=== PATIENT | male | born 1945 | race Caucasian/White ===

== ENCOUNTER 2019-03-07 15:44 | Inpatient (IN) | payer MEDICARE, OTHER ==
[~2019-03-07] VITALS: Ht 180.3 cm; Wt 115.3 kg
--- NOTE | ~2019-03-07 | ST ---
[place], [place] EXERCISE STRESS TEST REPORT NAME: ALFREDO FLORES [facility] #: [id number] UNIT #: [id number] ROOM: 404 DOCTOR: EMILEE DEL TORO,BEENA BIRTHDATE: [birth year] DOS: 03/09/2019 LEXISCAN STRESS TEST REASON FOR TEST: Elevated troponin. PHYSICAL EXAMINATION NECK: Supple. LUNGS: Clear anteriorly. HEART: Regular rhythm. PROTOCOL: Lexiscan protocol. Maximum heart rate 82, peak blood pressure 140/80. SYMPTOMS: The patient is chest pain free. EKG: Resting EKG showed sinus rhythm. Stress EKG showed no ischemia, no arrhythmias. CONCLUSION: Clinically, the patient is chest pain free. EKG nonischemic. POST-STRESS COMPLICATIONS: None. The patient received a total of 0.4 mg Lexiscan. BEENA HEBERT MD CM:STRESS:EXERCISE STRESS TEST REPORT [id number] BEENA HEBERT MD
--- NOTE | ~2019-03-07 | EKG ---
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
--- NOTE | ~2019-03-07 | EKG ---
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
--- NOTE | ~2019-03-07 | PR ---
[place], [place] PROGRESS NOTE [facility] [id number] UNIT #: [id number] ROOM: 404 DOCTOR: EMILEE DEL TORO,BEENA BIRTHDATE: [birth year] DOS: 03/09/2019 CARDIOLOGY FOLLOW UP NOTE REASON FOR VISIT: Elevated troponin and hypertension, cellulitis. SUBJECTIVE: Mr. Flores denies any chest pain, shortness of breath. No palpitation or dizziness. His right leg was dressed. He was seen by the ophthalmic surgical assistant. Denies any PND or orthopnea. No fever and chills. No nausea, vomiting, diarrhea. No cough or hemoptysis. His 2D echo showed mild aortic regurgitation. REVIEW OF SYSTEMS: Negative except as mentioned above. VITAL SIGNS: Blood pressure 140/80, pulse 83, respiration rate was 20. RHYTHM STRIPS: The patient is in sinus rhythm. PHYSICAL EXAMINATION: GENERAL: Alert, comfortable, in no acute distress. NECK: Supple, no distended neck veins. No carotid bruit. CHEST: Symmetrical, nontender. LUNGS: Clear to auscultation bilaterally. HEART: Regular rhythm, no S3, no palpable thrills. ABDOMEN: Benign, nontender. Bowel sounds normal. EXTREMITIES: Showed right leg was in dressing with edema, left leg has 1+ edema. The patient had a nonhealing ulcer of the left toe. Distal pulses are unable to palpate. NEUROLOGIC: He is alert with no focal neurologic deficit. RECTAL: Deferred. GENITOURINARY: Deferred. MEDICATIONS AND LABORATORY DATA: Reviewed. IMPRESSION: 1. 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 EKG has no significant ischemia. 2. Cellulitis and abscess of the right leg. 3. Non-morbid obesity. 4. Hypertension. 5. Mild aortic regurgitation by echo. RECOMMENDATIONS: 1. Continue current medications. 2. Lexiscan stress test today. 3. If the stress test is nonischemic, Cardiology will sign off. 4. The echo findings are discussed with Mr. Flores. 5. The patient can be discharged home per [facility] Disease [facility] if the stress test is unremarkable. 6. Risk factor modification for diet, exercise, weight loss discussed. [place], [place] PROGRESS NOTE NAME: ALFREDO FLORES UNIT #: [id number] ROOM: 404 DOCTOR: EMILEE DEL TORO,BEENA BIRTHDATE: [birth year] BEENA HEBERT MD CM:PNTRANS 09 [id number] BEENA HEBERT MD 03/10/19 1459 interface
[~2019-03-07 15:44] MED LIST: COLACE100 MG PO; DOXYCYCLINE100 M3 PO; ECOTRIN81 M1 PO; FEOSOL325 MG PO; FLOMAX0.4 MG PO; LOPRESSOR50 M1 PO; MEDROL DOSEPAK4 MG PO; MEDROL4 M1 PO; MELATONIN3 MG PO; NORCO 5-325 TA1 EACH PO; PRINIVIL5 M1 PO; SENNOSIDES-DOC1 EACH PO; TYLENOL325 M3 PO; VITAMIN D31000 UNI1 PO; XARELTO10 MG PO; ZOFRAN4 MG PO
[2019-03-07 15:47] VITALS: BP 172/73
[2019-03-07 16:21] LABS: BASO % 0.4 % (0.0-1.0); EOS # 0.2 10*3/uL (0.0-0.4); EOS % 1.9 % (1.0-4.0); HEMATOCRIT 37.8 % (42.0-52.0); HEMOGLOBIN 11.5 g/dl (14.0-18.0); LYMPH # 0.9 10*3/uL (1.3-4.4); LYMPH % 8.9 % (27.0-41.0); MEAN CELL VOLUME 79.2 fl (80.0-94.0); MEAN CORPUSCULAR HGB 24.1 pg (27.0-31.0); MEAN CORPUSCULAR HGB CONC 30.4 g/dl (33.0-37.0); MEAN PLATELET VOLUME 8.4 fl (9.6-12.3); MONO # 0.7 10*3/uL (0.1-1.0); MONO % 7.4 % (3.0-9.0); NEUT # 7.7 10*3/uL (2.3-7.9); NEUT % 80.1 % (47.0-73.0); PLATELET COUNT AUTOMATED 240 10*3/uL (130-400); RED BLOOD COUNT 4.77 10*6/uL (4.50-5.90); RED CELL DISTRI WIDTH 15.3 % (0-14.5); WHITE BLOOD COUNT 9.7 10*3/uL (4.8-10.8)
[2019-03-07 16:32] LABS: ACT PARTIAL THROMBO TIME 29.3 SECONDS (20.0-32.1)
[2019-03-07 16:40] LABS: ALBUMIN 2.9 gm/dl (3.1-4.5); ALKALINE PHOSPHATASE 169 U/L (45-117); BUN 12 mg/dl (7-24); CHLORIDE 106 mmol/L (98-107); CREATININE 0.91 mg/dL (0.70-1.30); LIPASE 69 U/L (73-393); POTASSIUM 4.1 mmol/L (3.5-5.1); SGOT/AST 10 IU/L (3-35); SGPT/ALT 12 U/L (12-78); SODIUM 137 mmol/L (136-145); TOTAL PROTEIN 7.1 gm/dL (6.4-8.2)
[2019-03-07 16:52] LABS: TROPONIN I < 0.015 ng/ml (<0.045)
--- NOTE | 2019-03-07 17:03 | NUR ---
PT HAS A UNIBOOT IN PLACE WITH A WOUND UNDERNEATH. WAS JUST DRESSED ABOUT [address] ALBARRAN DOES NOT WANT US TO UNDRESS THE SITE.
--- NOTE | 2019-03-07 17:20 | NUR ---
PT WISHES TO STAY IN HIS STREET CLOTHES UNTIL ARRIVAL TO ADMISSION BED.
--- NOTE | 2019-03-07 17:55 | NUR ---
PRANAY HOLDER'S ANSWERING SERVICE NOTIFIED OF CONSULT.
[2019-03-07 18:28] VITALS: BP 160/89
--- NOTE | 2019-03-07 18:49 | NUR ---
MASADMTime: N A 73 year old MALE admitted to under services of MARJORIE CEJA DO Pt. arrived via bed from ER. Chief complaint: PAIN, SWELLING RT FOOT. RACHANA MEDINA
[2019-03-07 20:00] VITALS: BP 170/80
--- NOTE | 2019-03-07 21:19 | NUR ---
PATIENT IS RESTING IN BED WITH EASY AND REGULAR RESPERS ON ROOM AIR. ASSESSMENT IS COMPLETE WITH NO S/S OF DISTRESS. PRN NORCO PROVIDED FOR C/O PAIN TO RIGHT FOOT. BED IS LOW, LOCKED, AND CALL LIGHT IS WITHIN REACH. WILL MONITOR EFFECT OF MEDICATION. SEE SHIFT ASSESSMENT.
[2019-03-07 23:05] LABS: BASO % 0.2 % (0.0-1.0); EOS # 0.1 10*3/uL (0.0-0.4); EOS % 1.5 % (1.0-4.0); HEMATOCRIT 38.4 % (42.0-52.0); HEMOGLOBIN 11.6 g/dl (14.0-18.0); LYMPH # 0.6 10*3/uL (1.3-4.4); LYMPH % 9.9 % (27.0-41.0); MEAN CELL VOLUME 79.3 fl (80.0-94.0); MEAN CORPUSCULAR HGB CONC 30.2 g/dl (33.0-37.0); MEAN PLATELET VOLUME 8.9 fl (9.6-12.3); MONO # 0.1 10*3/uL (0.1-1.0); MONO % 2.3 % (3.0-9.0); NEUT # 5.2 10*3/uL (2.3-7.9); NEUT % 83.4 % (47.0-73.0); PLATELET COUNT AUTOMATED 218 10*3/uL (130-400); RED BLOOD COUNT 4.84 10*6/uL (4.50-5.90); RED CELL DISTRI WIDTH 15.3 % (0-14.5); WHITE BLOOD COUNT 6.2 10*3/uL (4.8-10.8)
[2019-03-07 23:19] LABS: BUN 10 mg/dl (7-24); CHLORIDE 105 mmol/L (98-107); CREATININE 1.19 mg/dL (0.70-1.30); POTASSIUM 3.5 mmol/L (3.5-5.1); SODIUM 140 mmol/L (136-145); TROPONIN I 0.022 ng/ml (<0.045)
[2019-03-07 23:48] LABS: BILIRUBIN NEGATIVE (NEGATIVE); BLOOD NEGATIVE (NEGATIVE); CLARITY CLEAR (CLEAR); COLOR YELLOW (YELLOW); GLUCOSE NEGATIVE (NEGATIVE); KETONE NEGATIVE (NEGATIVE); LEUKO ESTERASE NEGATIVE (NEGATIVE); NITRITE NEGATIVE (NEGATIVE); SPECIFIC GRAVITY >= 1.030 (1.005-1.030); UROBILINOGEN 0.2 E.U./dl (0.2-1.0)
[2019-03-08] VITALS: BP 120/52
[2019-03-08 00:19] LABS: RBC 0-2 rbc/hpf (0-2); WBC 0-2 wbc/hpf (0-5)
--- NOTE | 2019-03-08 00:21 | NUR ---
ONE TIME DOSE OF MOTRIL GIVEN AT THIS TIME FOR A TEMP OF 102 RECTAL. WILL MONITOR EFFECT, CALL LIGHT IS WITHIN REACH.
--- NOTE | 2019-03-08 03:00 | NUR ---
PRN TYLENOL GIVEN FOR A TEMP OF 99.0 ORALLY. CALL LIGHT IS WITHIN REACH, WILL MONITOR EFFECT.
[2019-03-08 04:00] VITALS: BP 147/70
--- NOTE | 2019-03-08 04:45 | NUR ---
24 HR. CHART CHECK COMPLETE.
[2019-03-08 05:33] LABS: BUN 9 mg/dl (7-24); CHLORIDE 107 mmol/L (98-107); CHOLESTEROL 157 mg/dL (<200); CREATININE 0.91 mg/dL (0.70-1.30); HDL CHOLESTEROL 32 mg/dl (40-60); LDL CHOLESTEROL 110 mg/dL (9-159); POTASSIUM 4.2 mmol/L (3.5-5.1); SODIUM 138 mmol/L (136-145); TRIGLYCERIDES 73 mg/dl (<150); VLDL CHOLESTEROL 15 mg/dL (6-40)
[2019-03-08 05:39] LABS: THYROID STIM HORMONE (HS) 0.942 uIU/ml (0.358-4.75)
[2019-03-08 05:58] LABS: HEMATOCRIT 36.5 % (42.0-52.0); HEMOGLOBIN 11.1 g/dl (14.0-18.0); MEAN CELL VOLUME 78.7 fl (80.0-94.0); MEAN CORPUSCULAR HGB 23.9 pg (27.0-31.0); MEAN CORPUSCULAR HGB CONC 30.4 g/dl (33.0-37.0); PLATELET COUNT AUTOMATED 231 10*3/uL (130-400); RED BLOOD COUNT 4.64 10*6/uL (4.50-5.90); RED CELL DISTRI WIDTH 15.4 % (0-14.5); WHITE BLOOD COUNT 10.2 10*3/uL (4.8-10.8)
--- NOTE | 2019-03-08 06:34 | NUR ---
ALFREDO FLORES [id number] Please refer to the physician's history and physical for past medical history, comorbid conditions, and allergies. Diagnosis: CELLULITIS AND ABSCESS OF FOOT Caleb Score: 20,LOW OR NO RISK WOUND DESCRIPTIONS: Wound Number: 1 Location of the wound: Left great toe Type of wound: unstageable Thickness: Full Size: 1.7cm x 0.6cm x 0.1cm Tunneling: none Undermining: none Sinus Tract: none Presence of Exudate: Serosanguineous Amount: Light Color: Red Odor: None Periwound Skin Appearance: Normal Wound edges: approximated Pain (associated with wound): none at time of assessment How does patient state this happened? pt stated this started about 2 weeks ago Wound Number: 2 Location of the wound: right lateral aspect of ankle Thickness: Full Size: 2.0cm x 1.2cm x 0.1cm Tunneling: none Undermining: none Sinus Tract: none Presence of Exudate: Serosanguineous Amount: Moderate Color: Red, yellow Odor: None Periwound Skin Appearance: Staining, edema Wound edges: approximated Pain (associated with wound): none at time of assessment How does patient state this happened? pt stated this has been going on for awhile and he stated he follows with Dr. Galvan and was just seen in the office yesterday and had his leg wrapped. He stated when he is discharged from the facility he will continue to follow with Dr. Galvan. Wound Number: 3 Location of the wound: right medial ankle Thickness: Partial Size: 0.6cm x 0.4cm x 0.1cm Tunneling: none Undermining: none Sinus Tract: none Presence of Exudate: Sanguineous Amount: Light Color: Red Odor: None Periwound Skin Appearance: Staining Wound edges: approximated Pain (associated with wound): none at time of assessment How does patient state this happened? pt stated this has been going on for awhile and he stated he follows with Dr. Galvan and was just seen in the office yesterday and had his leg wrapped. He stated when he is discharged from the facility he will continue to follow with Dr. Galvan. Patient has several intact scars noted to right lower extremity he stated these areas are from an external fixation device which he has had four different times. Patient has staining, dry and flaky areas noted to right lower extremity. Patient states areas looks so much better than before. Surface the patient is resting on: Position Pro SKIN PREVENTION RECOMMENDATION: 1. Pressure redistribution support surface as appropriate 2. Elevate heels 3. Remove boots/TEDS every shift and reapply 4. Head of bed 30 degrees as tolerated 5. Assess nutrition and hydration 6. Manage moisture 7. Avoid the use of containment devices while in bed 8. Use absorptive products on surfaces limit layers of linens on bed 9. Turn and reposition every 1-2 hours in bed and every 1 hour in chair as tolerated 10. Weight shifts every 15 minutes while up in chair 11. Offloading with pillows or device to keep heels elevated off bed 12. Monitor skin at least every shift 13. Inspect under medical devices twice a day WOUND TREATMENT RECOMMENDATIONS: Venous and arterial studies to BLE's due to non-heaing wounds patient stated his last studies were about 2 years ago. Imaging stuides bilateral feet due to non-healing wounds. Podiatry and ID already on consult await wound care orders from podiatry.
--- NOTE | 2019-03-08 07:12 | NUR ---
Samson Levy made aware that dressing was taken off last evening and he will see that patient later today.
--- NOTE | 2019-03-08 07:15 | NUR ---
RAPID RESPONSE CALLED AT 2218 D/T PATIENTS SEVERE TREMORS AND CYANOTIC LIPS. 2L O2 VIA NC APPLIED AND PRISCA GUSMAN BENDER, AND MAYITO IN TO ASSESS PATIENT. SPO2 94% TEMP 102.1. RECTAL TYLENOL GIVEN, IV FLUIDS BOLUSED, 25MG IV BENADRYL GIVEN, WELL UNABOOTS ORDERED TO BE CUT OFF D/T CAP REFILL TO TOES BEING SLUGGISH AND SKIN TO FOOT COLD AND THIGH BEING WARM. TREMORS SUBSIDED AROUND 2234 AND PATIENT STATES HE IS FEELING MUCH BETTER. CALL LIGHT IS WITHIN REACH, WILL CONTINUE TO MONITOR.
--- NOTE | 2019-03-08 07:21 | NUR ---
Dr. Yee notified of wound care recommendations.
[2019-03-08 07:35] LABS: BASOPHILS 1 % (0-1); TOTAL CELLS COUNTED 100 #CELLS
[2019-03-08 07:37] LABS: MICROCYTOSIS SLIGHT; PLATELET SUFFICIENCY NORMAL (NORMAL)
[2019-03-08 07:50] LABS: VITAMIN D, 25-HYDROXY 30.1 ng/mL (30-100)
[2019-03-08 08:00] VITALS: BP 176/74
--- NOTE | 2019-03-08 08:25 | NUR ---
'S OFFICE NOTIFIED OF CONSULT.
--- NOTE | 2019-03-08 08:30 | NUR ---
PATIENT RESTING QUIETLY IN BED. NO DISTRESS NOTED. PT ALERT/ORIENTED X3. SKIN PALE, WARM & DRY. PT DENIES ANY SOB ON RA. LUNGS CLEAR/DIMINISHED T/O. PT DENIES ANY PAIN/DISCOMFORT AT THIS TIME. VSS. UNNA BOOT TAKEN OFF OF RIGHT LOWER LEG T/O THE NIGHT. AWAITING FOR PODIATRY. WILL CONTINUE TO MONITOR.
--- NOTE | 2019-03-08 08:45 | NUR ---
ECHO BEING PERFORMED AT THE BEDSIDE.
--- NOTE | 2019-03-08 09:00 | NUR ---
case management attempted to visit with patient, he is with nursing staff at this time, will see at a later time
--- NOTE | 2019-03-08 10:44 | NUR ---
IN TO SEE PATIENT. THIS NURSE IN DURING ROUNDING.
--- NOTE | 2019-03-08 10:48 | NUR ---
PATIENT TAKEN DOWN FOR STAT U/S.
[2019-03-08 12:02] VITALS: BP 150/62
[2019-03-08 16:00] VITALS: BP 147/71
--- NOTE | 2019-03-08 16:10 | NUR ---
PT MEDICATED WITH PO NORCO PER PRN ORDER FOR C/O RIGHT FOOT PAIN. RATES PAIN 02/24. WILL MONITOR EFFECTIVENESS.
--- NOTE | 2019-03-08 17:13 | NUR ---
PAIN BEING RELIEVED PER PT. WILL CONTINUE TO MONITOR.
[2019-03-08 20:00] VITALS: BP 170/80; BP 190/90
[2019-03-09] VITALS: BP 150/80; BP 168/89
--- NOTE | 2019-03-09 01:30 | NUR ---
RT arm IV discontinued. Site swollen and tender to touch. Pressure applied. Sterile dressing applied. SHAUN MILLER
--- NOTE | 2019-03-09 01:40 | NUR ---
IV started right antecubital with #22 protective cath after 1 attempt. Site prepped with Chloroprep. Sterile dressing applied. Patient tolerated procedure well. SHAUN MILLER
[2019-03-09 06:38] LABS: HEMATOCRIT 36.9 % (42.0-52.0); HEMOGLOBIN 11.2 g/dl (14.0-18.0); MEAN CELL VOLUME 78.8 fl (80.0-94.0); MEAN CORPUSCULAR HGB 23.9 pg (27.0-31.0); MEAN CORPUSCULAR HGB CONC 30.4 g/dl (33.0-37.0); MEAN PLATELET VOLUME 9.3 fl (9.6-12.3); PLATELET COUNT AUTOMATED 248 10*3/uL (130-400); RED BLOOD COUNT 4.68 10*6/uL (4.50-5.90); RED CELL DISTRI WIDTH 14.8 % (0-14.5); WHITE BLOOD COUNT 16.8 10*3/uL (4.8-10.8)
[2019-03-09 07:03] LABS: BUN 15 mg/dl (7-24); CHLORIDE 106 mmol/L (98-107); CREATININE 0.86 mg/dL (0.70-1.30); POTASSIUM 4.3 mmol/L (3.5-5.1); SODIUM 139 mmol/L (136-145)
[2019-03-09 07:28] LABS: PLATELET SUFFICIENCY NORMAL (NORMAL); TOTAL CELLS COUNTED 100 #CELLS
[2019-03-09 08:00] VITALS: BP 170/88
--- NOTE | 2019-03-09 09:00 | NUR ---
case management attempted to visit with patient, he is out of room for testing, will see at a later time
--- NOTE | 2019-03-09 10:03 | NUR ---
INFORMED SIGNED CONSENT OBTAINED FOR LEXISCAN STRESS TEST WITH DR HEBERT. RESTING EKG NSR HR 63 BP 140/80. PULSE OX 100% LUNGS CLEAR. PT COMPLETED ONE MINUTE OF A LEXISCAN PROTOCOL COMPLETED WITH PT RECEIVING LEXISCAN 0.4MG IV OVER 10 SECONDS. PT HAD AN ODD SENSATION WITH INJECTION. NO ARRHYTHMIAS OR ST CHANGES NOTED. LAST RECOVERY HR OF 80 BP 140/80. PT IN STABLE CONDITION, AWAITING NUCLEAR IMAGES.
--- NOTE | 2019-03-09 11:28 | NUR ---
PHYSICAL THERAPY Physical therapy evaluation attempted. Patient off floor at this time for stress test. Will attempt PT evaluation again at a later time/date. Thank you. Maryellen Meneses,PT,DPT.
--- NOTE | 2019-03-09 12:33 | NUR ---
case management attempts to visit with patient, he is still out of room, case management will follow
--- NOTE | 2019-03-09 13:43 | NUR ---
PHYSICAL THERAPY Physical therapy evaluation attempted. Dr. Davies in room with patient with Right LE/foot unwrapped at this time. Patient reports that he is fatigued following testing earlier in the day, but states that he does well in the room with his crutches. Physician and patient request PT return at a later time/date to complete PT evaluation. Will attempt at a later time/date. Thank you. Maryellen Meneses,PT,DPT.
--- NOTE | 2019-03-09 13:49 | NUR ---
Occupational therapy orders receieved and chart reviewed. Upon arrival, podiatry was in room and Roel JANG was undressed. Per patient, he was "feeling groggy" and "has not eaten lunch yet." and would prefer to be evaluated at a later date. Will follow up when appropriate. Thank you for the referral. Louisa Kevin, OTR/L
--- NOTE | 2019-03-09 15:11 | NUR ---
Watch And Clock Repair Clerk in to talk to patient. Patient states lives at home with alone. There are few steps in the home. Physician: ruben thomas Pharmacy: [facility] Home health services: none at present Patient's level of ADLs: MINIMAL ASSIST Patient has working utilities: all working DME: crutches, case boot/brace Follow-up physician's appointment after d/c: will be made by hospitalist nurse director upon discharge Does patient want to access PORTAL?: no Discharge plan discussed with patient, he states he lives he ambulates with cruthces at this time, he is independent in adls, discussed with him a discharge plan including a short term half-way for rehab prior to going home, patient stated he is very familiar with LTAC, half-way and home health services, he has been a patient at [facility] and also [facility]. he uses [facility] in the past. patient states he is unsure of the treatm plan and until he knows that he is unable to determine what he will need, case management will follow for needs. FREEMAN LANG
[2019-03-09 16:00] VITALS: BP 157/77
--- NOTE | 2019-03-09 17:17 | NUR ---
NORCO 5/325 GIVEN PER PATIENT REQUEST FOR RIGHT LEG PAIN RATING A 7.
--- NOTE | 2019-03-09 19:30 | NUR ---
24 HOUR CHART CHECK COMPLETE.
[2019-03-09 20:00] VITALS: BP 160/82; BP 185/85
--- NOTE | 2019-03-09 23:29 | NUR ---
PRN NORCO ADMINISTERED FOR PT C/O SCIATIC PAIN RATED A 6/10. NO OTHER COMPLAINTS AT THIS TIME. WILL CONTINUE TO MONITOR AND REASSESS.
[2019-03-10] VITALS: BP 135/74; BP 159/76
--- NOTE | 2019-03-10 00:15 | NUR ---
PT STATES RELIEF FROM NORCO. WILL CONTINUE TO MONITOR.
[2019-03-10 06:50] LABS: BASO % 0.3 % (0.0-1.0); EOS % 0.1 % (1.0-4.0); HEMATOCRIT 36.1 % (42.0-52.0); HEMOGLOBIN 10.9 g/dl (14.0-18.0); LYMPH # 0.8 10*3/uL (1.3-4.4); LYMPH % 7.8 % (27.0-41.0); MEAN CELL VOLUME 78.8 fl (80.0-94.0); MEAN CORPUSCULAR HGB 23.8 pg (27.0-31.0); MEAN CORPUSCULAR HGB CONC 30.2 g/dl (33.0-37.0); MEAN PLATELET VOLUME 9.2 fl (9.6-12.3); MONO # 0.5 10*3/uL (0.1-1.0); MONO % 4.9 % (3.0-9.0); NEUT # 8.3 10*3/uL (2.3-7.9); NEUT % 84.8 % (47.0-73.0); PLATELET COUNT AUTOMATED 228 10*3/uL (130-400); RED BLOOD COUNT 4.58 10*6/uL (4.50-5.90); RED CELL DISTRI WIDTH 15.1 % (0-14.5); WHITE BLOOD COUNT 9.7 10*3/uL (4.8-10.8)
[2019-03-10 07:06] LABS: BUN 16 mg/dl (7-24); CHLORIDE 107 mmol/L (98-107); CREATININE 0.88 mg/dL (0.70-1.30); PHOSPHOROUS 3.5 mg/dL (2.5-4.9); POTASSIUM 3.7 mmol/L (3.5-5.1); SODIUM 141 mmol/L (136-145)
[2019-03-10 08:00] VITALS: BP 180/80
[2019-03-10 16:00] VITALS: BP 155/71
--- NOTE | 2019-03-10 16:20 | NUR ---
pt medicated with prn norco for c/o of back and rle pain. pt rates pain 01/24.
--- NOTE | 2019-03-10 19:00 | NUR ---
PHYSICAL THERAPY PT EVAL COMPLETED TODAY ON LEVEL 4: FULL EVALUAITON TO FOLLOW. RECOMMEND PT WHILE HERE TO ADDRESS DECREASED STRENGTH, ENDURANCE, BALANCE AND THUS DECREASED FUNCTIONAL MOBILITY. PT EVAL IS MODERATE COMPLEXITY BASED ON CHART REVIEW, TEST RESULTS AND EVALAUTION:[id number]. D/C RECOMMENDATIONS ARE FOR SNF AT THIS TIME DUE TO LIVING ALONE AND HAVING DIFFICULTY MAINTAINING NWB STATUS ON THE RLE. IF HE DOES NOT MEET CRITERIA FOR SNF WOULD ADVISE HOME PT SERVICES. THANK YOU FOR REFERRAL KAVITHA MCCANN PT
--- NOTE | 2019-03-10 19:30 | NUR ---
24 HOUR CHART CHECK COMPLETE.
[2019-03-10 20:00] VITALS: BP 127/59
--- NOTE | 2019-03-10 21:11 | NUR ---
PRN NORCO ADMINISTERED FOR SCIATIC PAIN RATED A 6/10 ON THE PAIN SCALE. WILL CONTINUE TO MONITOR AND REASSESS. NO OTHER COMPLAINTS AT THIS TIME. CALL LIGHT IN REACH.
--- NOTE | 2019-03-10 22:00 | NUR ---
PT STATES THAT HIS PAIN IS GONE, AND FEELS A LOT MORE COMFORTBALE AFTER RECEIVING THE NORCO. WILL CONTINUE TO MONITOR.
[2019-03-11] VITALS: BP 135/74
--- NOTE | 2019-03-11 07:27 | NUR ---
May convert patient to PO Zyvox if clinically feasible -- all criteria met for IV to PO conversion. Thanks, Mamadou Rivera, PharmD, h
[2019-03-11 08:00] VITALS: BP 158/82
[2019-03-11 12:00] VITALS: BP 150/68
--- NOTE | 2019-03-11 13:00 | NUR ---
PATIENT COMPLAINING OF BACK PAIN 01/24 AT THIS TIME AND REQUESTING NORCO. MEDICATED PER ORDER. WILL MONITOR FOR EFFECTIVENESS.
[2019-03-11 16:00] VITALS: BP 172/83
--- NOTE | 2019-03-11 19:30 | NUR ---
24 HOUR CHART CHECK COMPLETE.
[2019-03-11 20:00] VITALS: BP 179/77
--- NOTE | 2019-03-11 20:56 | NUR ---
PRN NORCO ADMINISTERED FOR PT COMPLAINT OF 8/10 SCIATIC PAIN. WILL CONTINUE TO MONITOR AND REASSESS. NO OTHER COMPLAINTS AT THIS TIME. CALL LIGHT IN REACH.
--- NOTE | 2019-03-11 21:30 | NUR ---
PT ASLEEP. NO SIGNS OF DISCOMFORT OR DISTRESS NOTED.
[2019-03-12] VITALS: BP 152/81
[2019-03-12 08:00] VITALS: BP 156/58
--- NOTE | 2019-03-12 09:00 | NUR ---
PT REQUESTED AND RECEIVED PO NORCO PER PRN ORDER FOR C/O RIGHT FOOT PAIN. WOUND VAC INTACT. WILL MONITOR EFFECTIVENESS.
--- NOTE | 2019-03-12 09:00 | NUR ---
case management visits with patient, again discussed a discharge plan with patient. patient stated he was waiting to talk with salvage engineering technician regarding amputation of his leg or home iv antibiotics, he he had home iv antibiotics he would prefer [facility], case management will follow for any home needs
--- NOTE | 2019-03-12 09:45 | NUR ---
PHYSICAL THERAPY Patient seen this am 1;1 for therapy visit and was resting supine in bed upon therapist arrival. Patient was pleasant voicing no c/o's pain and presented with R LE wound vac. Patient stated several times he was considering R LE amputation and had just come back from the bathroom. Patient did not feel up to standing or walking again, however agreed to and transfered supine to sit EOB CGA, while performing seated B LE therex, all planes, 2 x 10 reps each to increase LE strength. Patient completed all treatment without c/o and remained seated EOB with call light, tray table and cell phone. Patient would benefit from SNF to improve standing dynamic balance, activity tolerance and mobility to reduce risk of falling. Will continue per POC as tolerated, total treatment time 14 minutes. Kiran Javier, SOLDERER
--- NOTE | 2019-03-12 10:11 | NUR ---
LUISACO EFFECTIVE PER PT. WILL CONTINUE TO MONITOR. CALL LIGHT WITHIN REACH.
[2019-03-12 12:00] VITALS: BP 152/66
--- NOTE | 2019-03-12 13:40 | NUR ---
PT REQUESTED AND RECEIVED PO NORCO PER PRN ORDER FOR C/O RIGHT FOOT PAIN. CHRONIC PAIN PER PT. WOUND VAC INTACT WITH TIGHT SEAL. WILL MONITOR EFFECTIVENESS. RATES PAIN 02/24. CALL LIGHT WITHIN REACH.
--- NOTE | 2019-03-12 14:20 | NUR ---
Discussed with patient his concerns over his mother's bank statements that need to be delivered to [place] where his mother is living. Since he is POA he is going to call the bank to see if they are able to print his mother's bank statements and he can have a friend picking table worker the bank statements and hand deliver them to [place] tomorrow in time for the [facility] meeting in the morning. Flight Tower Dispatcher and Dr. Bautista notified.
[2019-03-12] MEDS ORDERED: SIMVASTATIN20 MG PO (15:36)
[2019-03-12] MEDS ORDERED: ASPIRIN ADULT L81 M2 PO (15:36)
[2019-03-12] MEDS ORDERED: LISINOPRIL10 M1 PO (15:36)
[2019-03-12 16:00] VITALS: BP 139/70
--- NOTE | 2019-03-12 17:00 | NUR ---
WOUND PICS/MEASUREMENTS TAKEN FOR DISCHRGE TO [facility]. SEE WOUND ASSESSMENT SCREEN.
--- NOTE | 2019-03-12 19:40 | NUR ---
NURSE TO NURSE REPORT GIVEN TO YVES PITT AT [facility].
[2019-03-12 20:00] VITALS: BP 154/79
--- NOTE | 2019-03-12 20:32 | NUR ---
[facility] HAS BEEN DELAYED DUE TO EMERGENCY. PATIENT UPDATED.
--- NOTE | 2019-03-12 21:00 | NUR ---
PO NORCO ADMINISTERED PER PRN ORDER FOR C/O PAIN IN R LEG RATED 7/10. WILL MONITOR EFFECTIVENESS. CALL LIGHT IN REACH.
--- NOTE | 2019-03-12 21:02 | NUR ---
BAUDILIO FROM [facility] NOTIFIED OF DELAY IN TRANSFER. PHONE NUMBER [phone]
--- NOTE | 2019-03-12 21:44 | NUR ---
PATIENT TAKEN OFF FLOOR IN CARE OF [facility]. TRANSFER PACKET COMPLETED & SENT WITH PATIENT. ALL PATIENT BELONGINGS COLLECTED AND SENT WITH PATIENT WELL. WILL MONITOR.
--- NOTE | 2019-03-12 21:45 | NUR ---
PATIENT TAKEN OFF FLOOR IN CARE OF [facility]. TRANSFER PACKET COMPLETED & SENT WITH PATIENT. ALL PATIENT BELONGINGS COLLECTED AND SENT WITH PATIENT WELL.
--- NOTE | 2019-03-12 21:47 | NUR ---
YOANDY FROM [facility] UPDATED ON PT'S DEPARTURE.
--- NOTE | 2019-03-13 00:25 | NUR ---
RN FROM [facility] CALLED TO QUESTION ABOUT PATIENT'S LAST DOSE OF ANTIBIOTICS AND THE DATE OF REACTION TO VANCOMYCIN.
--- NOTE | 2019-03-13 07:50 | NUR ---
PHYSICAL THERAPY CO-SIGN I approve of the Physical Therapy notes written above. LOBO HUNTER PT, DPT
--- NOTE | 2019-03-13 08:52 | NUR ---
Occupational therapy order receieved. Patient has since been discharged. Thank you for the referral. Louisa Kevin OTR/L
== END 2019-03-12 21:47 | disposition short-term general hospital (02) | DRG 560 ==
LOC: ED 15:44 → EDHOLD 17:00 → 4E 17:00
PROVIDERS: Emergency Medicine; Internal Medicine; Student in an Organized Health Care Education/Training Program; ADMIT Internal Medicine
PROC: 4A02XM4 Measurement of Cardiac Total Activity, External Approach (ICD-10-PCS; principal; 2019-03-09)
PROC: 3E073KZ Introduction of Other Diagnostic Substance into Coronary Artery, Percutaneous Approach (ICD-10-PCS; principal; 2019-03-09)
DX: T84.116A Breakdown (mechanical) of internal fixation device of bone of right lower leg, initial encounter (principal); L02.611 Cutaneous abscess of right foot; L03.115 Cellulitis of right lower limb; E44.0 Moderate protein-calorie malnutrition; I24.8 Other forms of acute ischemic heart disease; I50.32 Chronic diastolic (congestive) heart failure; L97.319 Non-pressure chronic ulcer of right ankle with unspecified severity; M86.671 Other chronic osteomyelitis, right ankle and foot; D50.9 Iron deficiency anemia, unspecified; R79.89 Other specified abnormal findings of blood chemistry; I35.1 Nonrheumatic aortic (valve) insufficiency; R70.0 Elevated erythrocyte sedimentation rate; E83.41 Hypermagnesemia; N40.0 Benign prostatic hyperplasia without lower urinary tract symptoms; G62.9 Polyneuropathy, unspecified; E66.9 Obesity, unspecified; Y83.1 Surgical operation with implant of artificial internal device as the cause of abnormal reaction of the patient, or of later complication, without mention of misadventure at the time of the procedure; I11.0 Hypertensive heart disease with heart failure; Z80.42 Family history of malignant neoplasm of prostate; Z82.49 Family history of ischemic heart disease and other diseases of the circulatory system; Z88.1 Allergy status to other antibiotic agents; Z79.899 Other long term (current) drug therapy; Z79.82 Long term (current) use of aspirin; Z79.01 Long term (current) use of anticoagulants; Z71.3 Dietary counseling and surveillance; Z68.35 Body mass index [BMI] 35.0-35.9, adult; Z98.1 Arthrodesis status; Y92.89 Other specified places as the place of occurrence of the external cause

== ENCOUNTER → 2019-06-13 | Day surgery (SDC) | payer MEDICARE, OTHER ==
[~2019-06-13] VITALS: Ht 182.8 cm; Wt 108.9 kg
[~2019-06-13] MED LIST changes: +ASPIRIN ADULT L81 M2 PO; +CEFDINIR300 MG PO; +LEVOFLOXACIN750 M2 PO; +LISINOPRIL10 M1 PO; +SIMVASTATIN20 MG PO; +TRAMADOL HCL50 MG PO
--- NOTE | ~2019-06-13 | WRIGHTHP ---
[place], [place] PATIENT HISTORY AND PHYSICAL EXAM NAME: ALFREDO FLORES [facility] #: [id number] UNIT #: [id number] ROOM: DOCTOR: ANNIKA KENNY DPM BIRTHDATE: [birth year] DOS: 06/13/2019 LOWER EXTREMITY PHYSICAL EXAM: VASCULAR: He has good pedal pulses, good perfusion to his right lower extremity. Good cap refill time noted. NEUROLOGICAL: He has a loss of protective sensation secondary to peripheral neuropathy. DERMATOLOGICAL: He has no open wounds, no open lesions noted on his right lower extremity. MUSCULOSKELETAL: He has delayed union of tibial calcaneal joint. 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 ANNIKA KENNY DPM CM:HISPHYS:PATIENT HISTORY AND PHYSICAL EXAMINATION 1120 1409 ANNIKA KENNY DPM 06/13/19 1410 interface
--- NOTE | ~2019-06-13 | WRIGHTHP ---
[place], [place] PATIENT HISTORY AND PHYSICAL EXAM NAME: ALFREDO FLORES [facility] #: [id number] UNIT #: [id number] ROOM: DOCTOR: ANNIKA KENNY DPM BIRTHDATE: [birth year] DOS: 06/13/2019 INDICATION NOTE The patient is seen for complex reconstruction of his right lower extremity for limb salvage. With this in mind, he has fractured hardware in his right lower limb. At this time, he is set for surgery for removal of hardware x 2, insertion of new hardware and stabilization and attempts of re-stabilization of the ankle joint and also for bone debridement. With this in mind, he is aware of pros, cons, risks, benefits overcorrection, undercorrection, recurrence, numbness, infection, nonunion, delayed union, malunion, DVT, PE, limb loss, etc. With this in mind, he is set for surgery at the [facility]. With this in mind, he agreed to consent, site marking, understanding that he is at risk for limb loss, understanding that this is a salvage procedure and understands the pros, cons, risks, and benefits. With this in mind, he agrees to consent, site marking and perioperative management. ANNIKA KENNY DPM CM:HISPHYS:PATIENT HISTORY AND PHYSICAL EXAMINATION 1120 1408 ANNIKA KENNY DPM 06/13/19 1409 interface
--- NOTE | ~2019-06-13 | O ---
[place], [place] OPERATIVE NOTE NAME: ALFREDO FLORES [facility] #: [id number] UNIT #: [id number] ROOM: DOCTOR: ANNIKA KENNY DPM BIRTHDATE: [birth year] DOS: 06/13/2019 SURGEON: Annika Kenny DPM ASSISTANTS: 1. Dr. Antony Mchugh. 2. Luca Watts, PGY-3. PREOPERATIVE DIAGNOSES: 1. Painful hardware x 2, right posterior heel. 2. Osteomyelitis, right. 3. Delayed union of ankle, right. POSTOPERATIVE DIAGNOSES: 1. Painful hardware x 2, right posterior heel. 2. Osteomyelitis, right. 3. Delayed union of ankle, right. PROCEDURES: Removal of hardware x 2, right posterior calcaneus. Reinsertion of hardware, calcaneus x 2 and reinsertion of new hardware at the ankle x 2, right and incision and drainage, bone debridement, bone biopsy of the right ankle joint. DESCRIPTION OF PROCEDURE: The patient was seen in the preoperative holding area. Appropriate site was marked. He agreed to consent, site marking and perioperative management. He was brought in the OR where anesthesia was achieved on the bed. At this time, he was flipped to a prone position on the OR table and in prone position, his right foot and leg were prepped and draped in the usual sterile fashion. At this time, appropriate timeout was performed in the room and concurred. PROCEDURE #1: REMOVAL OF HARDWARE X 2, RIGHT CALCANEUS: An incision was made under fluoroscopy guidance. This was deepened in the same plane using sharp and blunt dissection avoiding neurovascular structures, once made proximal and once made distal in the posterior calcaneus. At this time, 2 pieces of screw fixation that were broken were removed in total. Next, under fluoroscopy guidance, reinsertion of hardware was put in from posterior to anterior in the 2 proximal and distal nail holes of the distal portion of the calcaneus. At this time, these were inserted and tightened nicely into the bone. These wounds were closed using 2-0 nylon. PROCEDURE #2: REINSERTION OF HARDWARE OF THE ANKLE JOINT: At this time, two fully threaded Integra headless screws were inserted from inferior calcaneus medial and lateral to the nail across the ankle joint into the distal tibia. There was good fixation, noted to be in good anatomic alignment, checked under fluoroscopy. PROCEDURE #3: INCISION AND DRAINAGE, BONE DEBRIDEMENT, BONE BIOPSY OF RIGHT ANKLE. Next, a stab incision was made posteriorly. At this time, bone was debrided. Bone was resected. Next, under fluoroscopy guidance, incision was [place], [place] OPERATIVE NOTE NAME: ALFREDO FLORES UNIT #: [id number] ROOM: DOCTOR: ANNIKA KENNY DPM BIRTHDATE: [birth year] made. This was deepened in the same plane using sharp and blunt dissection avoiding neurovascular structures. At this time, a curette was used to harvest bone. Bone was resected and sent for Gram stain, aerobic, anaerobic, fungal, acid fast to rule out any kind of bone infection and osteomyelitis. There was no pus, no drainage noted. So, at this time, 5 mL of Cerament was then inserted into the posterior ankle joint on the right under fluoroscopy guidance. The wounds were closed using 2-0 nylon and surgical wounds were dressed with Betadine-soaked Adaptic, 4 x 4s, Cyndi in a sterile compressive fashion. A BK cast was applied. He tolerated the procedure and anesthesia well and left the OR with vital signs stable and vascular status intact. ANNIKA KENNY DPM CM:OPRECORD:OPERATIVE NOTE [id number] ANNIKA KENNY DPM 06/13/19 1412 interface
[2019-06-13 07:55] VITALS: BP 161/73
[2019-06-13 10:30] VITALS: BP 128/54
[2019-06-13 10:45] VITALS: BP 129/53
[2019-06-13 11:00] VITALS: BP 124/56
[2019-06-13 11:15] VITALS: BP 130/51
[2019-06-13 11:30] VITALS: BP 125/53
[2019-06-14 16:07] LABS: ACID FAST SPEC PROCESSING Tissue Grinding (.)
[2019-06-14 16:07] LABS: ACID FAST SPEC PROCESSING Tissue Grinding (.)
== END | disposition home or self-care (01) ==
LOC: SDC 06-12 11:00
PROVIDERS: Podiatrist
DX: T84.84XA Pain due to internal orthopedic prosthetic devices, implants and grafts, initial encounter (principal); M86.8X7 Other osteomyelitis, ankle and foot; E55.9 Vitamin D deficiency, unspecified; I10 Essential (primary) hypertension; Z98.890 Other specified postprocedural states; Z71.89 Other specified counseling; Z88.8 Allergy status to other drugs, medicaments and biological substances; Y83.8 Other surgical procedures as the cause of abnormal reaction of the patient, or of later complication, without mention of misadventure at the time of the procedure; Y92.89 Other specified places as the place of occurrence of the external cause

== ENCOUNTER 2019-11-28 14:11 | Inpatient (IN) | payer MEDICARE, OTHER ==
[~2019-11-28] VITALS: Ht 182.8 cm; Wt 113.4 kg
[2019-11-28 14:25] VITALS: BP 136/74
[2019-11-28 15:15] LABS: BASO % 0.4 % (0.0-1.0); EOS # 0.1 10*3/uL (0.0-0.4); EOS % 1.3 % (1.0-4.0); HEMATOCRIT 40.1 % (42.0-52.0); LYMPH # 1.2 10*3/uL (1.3-4.4); LYMPH % 12.6 % (27.0-41.0); MEAN CELL VOLUME 78.6 fl (80.0-94.0); MEAN CORPUSCULAR HGB 25.3 pg (27.0-31.0); MEAN CORPUSCULAR HGB CONC 32.2 g/dl (33.0-37.0); MEAN PLATELET VOLUME 8.7 fl (9.6-12.3); MONO # 0.7 10*3/uL (0.1-1.0); MONO % 7.4 % (3.0-9.0); NEUT # 7.1 10*3/uL (2.3-7.9); NEUT % 77.4 % (47.0-73.0); PLATELET COUNT AUTOMATED 246 10*3/uL (130-400); RED CELL DISTRI WIDTH 14.5 % (0-14.5); WHITE BLOOD COUNT 9.2 10*3/uL (4.8-10.8)
[2019-11-28 15:25] LABS: ACT PARTIAL THROMBO TIME 29.9 SECONDS (20.0-32.1)
[2019-11-28 15:30] LABS: ALBUMIN 3.2 gm/dl (3.1-4.5); ALKALINE PHOSPHATASE 127 U/L (45-117); BUN 11 mg/dl (7-24); CHLORIDE 105 mmol/L (98-107); CREATININE 0.97 mg/dL (0.70-1.30); LIPASE 57 U/L (73-393); POTASSIUM 3.8 mmol/L (3.5-5.1); SGOT/AST 16 IU/L (3-35); SGPT/ALT 16 U/L (12-78); SODIUM 138 mmol/L (136-145); TOTAL PROTEIN 6.9 gm/dL (6.4-8.2)
[2019-11-28 15:32] LABS: TROPONIN I < 0.015 ng/ml (<0.045)
--- NOTE | 2019-11-28 16:00 | NUR ---
Transfer of care from Pura pemberton.Right leg is swollen and flaky with mutiple wounds documented.Pt can wiggle toes and has a postive dorsal pedal pulse.22 gauge intact and pt does not need anything at this time.
--- NOTE | 2019-11-28 16:30 | NUR ---
Pt also has closed scab on left side of foot which he states is a blood blister Currently blackish color but closed.
[2019-11-28 16:57] VITALS: BP 165/83
--- NOTE | 2019-11-28 17:30 | NUR ---
Time: 1729 A 74 year old MALE admitted to 4E under services of ALEXA HOWELL DO. Pt. arrived via bed from ER. Chief complaint: ABSCESS RIGHT ANKLE. RAMON MCDONALD
--- NOTE | 2019-11-28 18:36 | NUR ---
NOTIFIED OF CONSULT
[2019-11-28] MEDS ORDERED: KEFLEX 500 MG E2 CAP PO (18:48)
[2019-11-28 18:50] LABS: BACTERIA TRACE; BILIRUBIN NEGATIVE (NEGATIVE); BLOOD NEGATIVE (NEGATIVE); CLARITY CLEAR (CLEAR); COLOR YELLOW (YELLOW); EPITHELIAL CELLS 0-2; GLUCOSE NEGATIVE (NEGATIVE); KETONE NEGATIVE (NEGATIVE); LEUKO ESTERASE NEGATIVE (NEGATIVE); MUCOUS 1+; NITRITE NEGATIVE (NEGATIVE); RBC 0-2 rbc/hpf (0-2); UROBILINOGEN 0.2 E.U./dl (0.2-1.0)
[2019-11-28 18:52] VITALS: BP 176/86
--- NOTE | 2019-11-28 18:52 | NUR ---
PT C/O OF MINOR DISCOMFORT PRN NORCO GIVEN PER ORDER
--- NOTE | 2019-11-28 19:35 | NUR ---
IN TO ASSESS PATIENT AT THIS TIME. PATIENT APPEARS COMFORTABLE AND IN NO DISTRESS. PATIENT EDUCATED ON NPO STATUS AT MIDNIGHT FOR SURGERY WITH DR CHO IN AM. PT AGREEABLE AND PLEASANT. RIGHT FOOT WRAPPED AND UNABLE TO ASSESS WOUNDS AT THIS TIME. SCABS TO LEFT GREAT TOE AND PINKY TOE VISIBLE. WILL CONTINUE TO MONITOR.
[2019-11-28 20:00] VITALS: BP 150/53
--- NOTE | 2019-11-28 20:36 | NUR ---
DR BALL NOTIFIED OF UPDATED MED REC. PT STATES HE NEEDS HIS DOSE OF METOPROLOL AND FLOMAX FOR THIS EVENING, AWARE.
--- NOTE | 2019-11-28 22:35 | NUR ---
24 HOUR CHART CHECK COMPLETE.
[2019-11-29] VITALS (9 sets, daily range): BP systolic 140–193; BP diastolic 58–103
[2019-11-29 06:28] LABS: BASO % 0.4 % (0.0-1.0); EOS # 0.2 10*3/uL (0.0-0.4); EOS % 2.3 % (1.0-4.0); HEMATOCRIT 38.7 % (42.0-52.0); LYMPH # 0.3 10*3/uL (1.3-4.4); LYMPH % 4.3 % (27.0-41.0); MEAN CELL VOLUME 79.8 fl (80.0-94.0); MEAN CORPUSCULAR HGB 24.9 pg (27.0-31.0); MEAN CORPUSCULAR HGB CONC 31.3 g/dl (33.0-37.0); MEAN PLATELET VOLUME 8.8 fl (9.6-12.3); MONO # 0.5 10*3/uL (0.1-1.0); MONO % 6.2 % (3.0-9.0); NEUT # 6.6 10*3/uL (2.3-7.9); PLATELET COUNT AUTOMATED 195 10*3/uL (130-400); RED BLOOD COUNT 4.85 10*6/uL (4.50-5.90); RED CELL DISTRI WIDTH 14.6 % (0-14.5); WHITE BLOOD COUNT 7.7 10*3/uL (4.8-10.8)
--- NOTE | 2019-11-29 06:35 | NUR ---
ALFREDO FLORES [id number] Please refer to the physician's history and physical for past medical history, comorbid conditions, and allergies. Diagnosis: ABSCESS Caleb Score: 17,AT RISK WOUND DESCRIPTIONS: Wound Number: 1 Right lateral ankle, Wound Number: 2 Right medial ankle proximal, Wound Number: 3 Right medial ankle middle and Wound Number: 4 Right medial ankle inner Dressing intact to right lower extremity. Unable to remove due to patient having surgery this am at 7:30 with podiatry. Wound Number: 5 Location of the wound: left great toe Type of wound: unstageable Thickness: Full Size: 0.8cm x 0.5cm x <0.1cm Tunneling: none Undermining: none Sinus Tract: none Presence of Exudate: none Amount: None Color: Black Odor: None Periwound Skin Appearance: Normal Wound edges: approximated Pain (associated with wound): none at time of assessment How does patient state this happened? pt stated this is from his shoes rubbing and has had these areas for about 5 months Wound Number: 6 Location of the wound: left 5th toe Type of wound: unstageable Thickness: Full Size: 0.4cm x 0.4cm x <0.1cm Tunneling: none Undermining: none Sinus Tract: none Presence of Exudate: none Amount: None Color: Black Odor: None Periwound Skin Appearance: Normal Wound edges: approximated Pain (associated with wound): none at time of assessment How does patient state this happened? pt stated this is from his shoes rubbing and has had these areas for about 5 months Wound Number: 7 Location of the wound: left 2nd toe Type of wound: unstageable Thickness: Full Size: 0.2cm x 0.4cm x <0.1cm Tunneling: none Undermining: none Sinus Tract: none Presence of Exudate: none Amount: None Color: Brown Odor: None Periwound Skin Appearance: Normal Wound edges: approximated Pain (associated with wound): none at time of assessment How does patient state this happened? pt stated this is from his shoes rubbing and has had these areas for about 5 months Surface the patient is resting on: Isoflex SKIN PREVENTION RECOMMENDATION: 1. Pressure redistribution support surface as appropriate 2. Elevate heels 3. Remove boots/TEDS every shift and reapply 4. Head of bed 30 degrees as tolerated 5. Assess nutrition and hydration 6. Manage moisture 7. Avoid the use of containment devices while in bed 8. Use absorptive products on surfaces limit layers of linens on bed 9. Turn and reposition every 1-2 hours in bed and every 1 hour in chair as tolerated 10. Weight shifts every 15 minutes while up in chair 11. Offloading with pillows or device to keep heels elevated off bed 12. Monitor skin at least every shift 13. Inspect under medical devices twice a day WOUND TREATMENT RECOMMENDATIONS: Podiatry & ID already on consult. await dressing change orders post op surgery. Heel raiser pro boots to bilateral feet while in bed.
--- NOTE | 2019-11-29 06:39 | NUR ---
PT OFF FLOOR TO SURGERY.
[2019-11-29 06:58] LABS: ALBUMIN 2.8 gm/dl (3.1-4.5); BUN 9 mg/dl (7-24); CHLORIDE 108 mmol/L (98-107); CHOLESTEROL 151 mg/dL (<200); CREATININE 0.95 mg/dL (0.70-1.30); POTASSIUM 3.7 mmol/L (3.5-5.1); SGOT/AST 16 IU/L (3-35); SGPT/ALT 17 U/L (12-78); SODIUM 140 mmol/L (136-145); TRIGLYCERIDES 91 mg/dl (<150); VLDL CHOLESTEROL 18 mg/dL (6-40)
[2019-11-29 07:05] LABS: ALKALINE PHOSPHATASE 111 U/L (45-117); FREE T4 1.14 ng/dl (0.76-1.46); HDL CHOLESTEROL 25 mg/dl (40-60); LDL CHOLESTEROL 108 mg/dL (9-159); TOTAL PROTEIN 6.1 gm/dL (6.4-8.2)
[2019-11-29 08:00] LABS: VITAMIN D, 25-HYDROXY 28.3 ng/mL (30-100)
--- NOTE | 2019-11-29 08:06 | NUR ---
PHYSICAL THERAPY Screen received pt admitted from home with R ankle abcesses at multiple sites. Per MD notes pt for possible surgery of R ankle. Please consult PT as medically appropriate and per MD if pt has a decline in functional status pending surgical intervention. Michelle Lopez PT
--- NOTE | 2019-11-29 08:08 | NUR ---
Dr. Arnold notified of wound care recommendations.
--- NOTE | 2019-11-29 08:46 | NUR ---
POST-OP REPORT REC'D FROM SURGERY.
--- NOTE | 2019-11-29 09:00 | NUR ---
Inside Finisher in to talk to patient. Patient states lives at home with alone. There are none steps in the home. Physician: ruben thomas Pharmacy: [facility] Home health services: none at present Patient's level of ADLs: MINIMAL ASSIST Patient has working utilities: all working DME: crutches Follow-up physician's appointment after d/c: will be made by hospitalist nurse director upon dsicahrge Does patient want to access PORTAL?: no Discharge plan discussed with patient, he states he lives at home alone, he uses crutches for ambulation and is independent in adls . he states he had [facility] in the past. discussed with him a discharge plan including a short term fci for iv antibiotics, rehab and wound care. patient was receptive to this. he stated he was at [facility] in the past and would like to be referred there again. social services technician will send referral to [facility] when patient is medically stable for discharge. case management will follow. FREEMAN LANG
--- NOTE | 2019-11-29 09:03 | NUR ---
BACK TO ROOM FOLLOWING SURGERY. COMPLAINS OF BACK PAIN AND REQUESTING MEDS TO HELP.
--- NOTE | 2019-11-29 09:14 | NUR ---
MORPHINE GIVEN FOR C/O BACK PAIN, RT SHOULDER PAIN, AND PAIN TO RT FOOT OPERATIVE SITES RATED 8/10. CALL LIGHT IN REACH. WILL MONITOR FOR EFFECIVENESS.
--- NOTE | 2019-11-29 09:28 | NUR ---
ARELY sent new patient referral to [facility] in [place], [place] on this date. Pending acceptance and PT/OT Evals.
--- NOTE | 2019-11-29 10:00 | NUR ---
SLEEPING, NO SXS OF DISTRESS NOTED. MORPHINE SEEMS EFFECTIVE FOR EALIER COMPLAINTS. CALL LIGHT IN REACH.
--- NOTE | 2019-11-29 11:39 | NUR ---
NORCO GIVEN FOR PERSISTENT BACK PAIN AND RT SHOULDER PAIN RATED 6/10. STATES THIS IS CHRONIC PAIN. CALL LIGHT IN REACH WILL JEZ.
--- NOTE | 2019-11-29 12:36 | NUR ---
NORCO EFFECTIVE PER PT. PAIN TO BACK AND SHOULDER RATED 2/10. CALL LIGHT IN REACH.
--- NOTE | 2019-11-29 12:44 | NUR ---
TYLENOL GIVEN FOR TEMP OF 102.0. WILL MONITOR. CALL LIGHT IN REACH.
--- NOTE | 2019-11-29 13:06 | NUR ---
ARELY recieved word that patient is accepted at [facility] in [facility]. ARELY is still pending PT/OT evals and notes to fax to facility. Once patient is medically stable can be discharged to [facility] no pre cert needed.
--- NOTE | 2019-11-29 13:33 | NUR ---
TEMP 98.6. TYLENOL EFFECTIVE.
--- NOTE | 2019-11-29 14:04 | NUR ---
OFF FLOOR FOR ULTRASOUND
--- NOTE | 2019-11-29 14:20 | NUR ---
SHIFT CHART CHECK COMPLETED
--- NOTE | 2019-11-29 14:24 | NUR ---
BACK TO ROOM FOLLOWING ULTRASOUND.
--- NOTE | 2019-11-29 14:34 | NUR ---
NO COMPLAINTS VOICED. CALL LIGHT IN REACH. IVF GOING WITH EASE.
--- NOTE | 2019-11-29 19:40 | NUR ---
NOTIFIE DR. CASTAÑEDA OF PATIENTS TEMPERATURE. NOTIFIED HIM THAT PATIENTS TEMPERATURE AT NOON AFTER HIS SURGERY WAS UP TO 102 AND AFTER TYLNEOL IT CAME DOWN TO 98.3 BY 4PM. PATIENT CURRENTLY 102.[address] CASTAÑEDA STATED TO GIVE HIM MORE TYLENOL AND SEE IF IT COMES BACK DOWN.
--- NOTE | 2019-11-29 19:46 | NUR ---
PRN NORCO GIVEN PER PT REQUEST. PATIENT STATED HE WOULD LIKE TO SEE IF THE LITTLE BIT OF TYLENOL IN THE NORCO WOULD HELP BRING DOWN HIS TEMPERATURE AND HELP THE PAIN IN HIS FOOT HE IS RATING IT 10/10. CALL LIGHT WITHIN REACH, WILL MONITOR
--- NOTE | 2019-11-29 20:19 | NUR ---
NOTIFIED DR. CASTAÑEDA OF PATIENTS BLOOD PRESSURE MANUALLY 190/80. PATIENT DUE FOR LOPRESSOR OK TO GIVE EARLY. ALSO NOTIFIED HIM THAT PATIENT REQUESTED NORCO INSTEAD OF TYLENOL FOR 10/10 PAIN.
--- NOTE | 2019-11-29 20:46 | NUR ---
PRN WILVER EFFECTIVE, PATIENT STATES HIS PAIN IS STILL THERE BUT A LITTLE BETTER. PATIENTS TEMPERATURE ALSO 101.8 AT THIS TIME. PATIENT STATES HE'S FEELING A LITTLE BETTER AND REQUESTED TO SIT UP AT THE SIDE OF THE BED. CALL LIGHT WITHIN REACH, AVANI STORY
--- NOTE | 2019-11-29 21:26 | NUR ---
PRN MORPHINE GIVEN FOR PT COMPLAINTS OF CONTINUED PAIN IN LEG, BUT BETTER THAN EARLIER, RATING IT 7/10. CALL LIGHT WITHIN REACH, WILL MONITOR
--- NOTE | 2019-11-29 22:10 | NUR ---
PATIENT STATES HE FEELS MUCH BETTER. MORPHINE EFFECTIVE FOR PAIN. STATES HE FEELS VERY RELAXED RIGHT NOW
--- NOTE | 2019-11-29 22:37 | NUR ---
24 HR chart check completed.
--- NOTE | 2019-11-29 23:44 | NUR ---
TYLENOL GIVEN FOR PATIENT TEMPERATURE OF 100.5 ORALLY. WILL ASSESS EFFECTIVENESS.
[2019-11-30] VITALS: BP 156/62
--- NOTE | 2019-11-30 00:40 | NUR ---
TYLENOL EFFECTIVE. TEMPERATURE 98.5 ORALLY.
--- NOTE | 2019-11-30 00:54 | NUR ---
ZOFRAN GIVEN PER PATIENT REQUEST FOR COMPLAINTS OF NAUSEA. WILL ASSESS EFFECTIVENESS.
--- NOTE | 2019-11-30 01:50 | NUR ---
ZOFRAN EFFECTIVE PER PATIENT.
--- NOTE | 2019-11-30 02:16 | NUR ---
PATIENT'S WOUND VAC WAS BEEPING. TUBING WAS DISCONNECTED. REATTACHED TUBING. WOUND VAC SEAL CHECK WAS SAYING IT WAS NOT WORKING. Y-SITE ON TUBING SEEMS TO BE MISSING A CENTER PRONG. ATTEMPTED TO CALL RESIDENT GEOPHYSICAL OPERATOR, NO ANSWER. WILL TRY AGAIN.
[2019-11-30 02:54] VITALS: BP 147/68
--- NOTE | 2019-11-30 02:55 | NUR ---
NORCO GIVEN PER PATIENT REQUEST FOR COMPLAINTS OF PAIN IN RIGHT HIP AND RIGHT LEG/FOOT RATED 7/10. WILL ASSESS EFFECTIVENESS.
--- NOTE | 2019-11-30 03:45 | NUR ---
PATIENT STATED NORCO WAS EFFECTIVE. RESTING QUIETLY IN BED. WOUND VAC IS NOW WORKING. WILL NOTIFY PODIATRY THAT IT WAS AT ONE POINT NOT WORKING PROPERLY. RUNNING AT 200 CONTINUOUS LOW. PATIENT STATED, "IM ENJOYING THE EFFECTS OF THIS NORCO RIGHT NOW." CALL LIGHT WITHIN REACH. WILL CONTINUE TO MONITOR.
[2019-11-30 06:13] LABS: BASO % 0.5 % (0.0-1.0); EOS # 0.2 10*3/uL (0.0-0.4); EOS % 2.6 % (1.0-4.0); HEMATOCRIT 32.8 % (42.0-52.0); LYMPH # 0.4 10*3/uL (1.3-4.4); LYMPH % 6.5 % (27.0-41.0); MEAN CELL VOLUME 80.6 fl (80.0-94.0); MEAN CORPUSCULAR HGB 25.3 pg (27.0-31.0); MEAN CORPUSCULAR HGB CONC 31.4 g/dl (33.0-37.0); MEAN PLATELET VOLUME 9.1 fl (9.6-12.3); MONO # 0.6 10*3/uL (0.1-1.0); MONO % 10.2 % (3.0-9.0); NEUT % 79.4 % (47.0-73.0); PLATELET COUNT AUTOMATED 169 10*3/uL (130-400); RED BLOOD COUNT 4.07 10*6/uL (4.50-5.90); RED CELL DISTRI WIDTH 14.7 % (0-14.5); WHITE BLOOD COUNT 6.3 10*3/uL (4.8-10.8)
--- NOTE | 2019-11-30 06:28 | NUR ---
NOTIFIED RESIDENT WOOD POLE TREATER THAT PATIENT'S WOUND VAC HAD MALFUNCTIONED LAST NIGHT BUT THAT IT SEEMS TO BE WORKING NOW. HE STATED HE WOULD BE IN TO CHECK ON IT IN ABOUT AN HOUR AND A HALF.
[2019-11-30 06:46] LABS: BUN 8 mg/dl (7-24); CHLORIDE 105 mmol/L (98-107); CREATININE 0.88 mg/dL (0.70-1.30); SODIUM 139 mmol/L (136-145)
--- NOTE | 2019-11-30 07:44 | NUR ---
SHIFT CHART CHECK COMPLETED.
[2019-11-30 08:00] VITALS: BP 148/76
--- NOTE | 2019-11-30 08:57 | NUR ---
WOUND CARE NURSES CHRISTINE IN TO CHANGE WOUND VAC WITH PODIATRY RESIDENT . PT DENIES PAIN AT PRESENT TIME.
--- NOTE | 2019-11-30 09:00 | NUR ---
case management visits with patient, he was referred to [facility]. patient will be transferred when medically stable, case management will follow for any other discharge needs
--- NOTE | 2019-11-30 09:10 | NUR ---
ALFREDO FLORES [id number] Please refer to the physician's history and physical for past medical history, comorbid conditions, and allergies. Diagnosis: ABSCESS Caleb Score: 17,AT RISK WOUND DESCRIPTIONS: Wound Number: 1 in post op photograph this area was number as wound number 3 Location of the wound: right lateral ankle Type of wound: surgical Thickness: Full Size: 0.6cm x 0.5cm x 1.8cm Tunneling: none Undermining: none Sinus Tract: none Presence of Exudate: Serosanguineous Amount: Moderate Color: Red Odor: None Periwound Skin Appearance: Erythema Wound edges: approximated Pain (associated with wound): none How does patient state this happened? pt stated this has been ongoing and follows with podiatry and had surgery yesterday Wound Number: 2 Location of the wound: right anterior ankle Type of wound: surgical Thickness: Full Size: 1.9cm x 0.6cm x 1.1cm Tunneling: none Undermining: none Sinus Tract: none Presence of Exudate: Serosanguineous Amount: Moderate Color: Red Odor: None Periwound Skin Appearance: Erythema Wound edges: approximated Pain (associated with wound): none How does patient state this happened? pt stated this has been ongoing and follows with podiatry and had surgery yesterday Wound Number: 3 in post op photograph this area was number as wound number 1 Location of the wound: right medial ankle Type of wound: surgical Thickness: Full Size: 1.2cm x 1.2cm x 3.3cm Tunneling: none Undermining: none Sinus Tract: none Presence of Exudate: Serosanguineous Amount: Moderate Color: Red Odor: None Periwound Skin Appearance: Erythema Wound edges: approximated Pain (associated with wound): none How does patient state this happened? pt stated this has been ongoing and follows with podiatry and had surgery yesterday Nurse caring for patient Concepcion RN called this nurse to evaluate patient with podiatry resident. This nurse assisted wound vac change along with Gracie MARINELLI from wound care. During wound vac change per policy. This nurse asked if we were able to use white foam instead of black foam. Provider stated to continue the use of black foam. 4 total pieces of black foam used. Wound vac functioning at 200mmHg contious at low intensity per order. Education given to provider and patient regarding the difference between black foam and white foam as well as using a bridge instead of using a y connector. Surface the patient is resting on: Isoflex SKIN PREVENTION RECOMMENDATION: 1. Pressure redistribution support surface as appropriate 2. Elevate heels 3. Remove boots/TEDS every shift and reapply 4. Head of bed 30 degrees as tolerated 5. Assess nutrition and hydration 6. Manage moisture 7. Avoid the use of containment devices while in bed 8. Use absorptive products on surfaces limit layers of linens on bed 9. Turn and reposition every 1-2 hours in bed and every 1 hour in chair as tolerated 10. Weight shifts every 15 minutes while up in chair 11. Offloading with pillows or device to keep heels elevated off bed 12. Monitor skin at least every shift 13. Inspect under medical devices twice a day
--- NOTE | 2019-11-30 09:31 | NUR ---
ARELY faxed updates to [facility] on this date. Still penidng a negative rapid covid and PT/OT assessments. Once completed can finalize dishcharge and placment.
[2019-11-30 10:06] LABS: ACID FAST SPEC PROCESSING Tissue Grinding (.)
[2019-11-30 10:06] LABS: ACID FAST SPEC PROCESSING Tissue Grinding (.)
[2019-11-30 10:06] LABS: ACID FAST SPEC PROCESSING Tissue Grinding (.)
[2019-11-30 10:06] LABS: ACID FAST SPEC PROCESSING Tissue Grinding (.)
[2019-11-30 10:06] LABS: ACID FAST SPEC PROCESSING Tissue Grinding (.)
--- NOTE | 2019-11-30 11:33 | NUR ---
Nutritonal Support Services Note: Appetite is good for meals. He is eating 100% of all meals. Regular diet as ordered. Ht 6' Wt.250#. Moderate protein calorie malnutrition noted. Will send pt a night snack to help supplement calorie and protein intake. No other Nutrition intervention needed at this time. Will follow. Myrtle Cruz Rdn Ld
[2019-11-30 12:00] VITALS: BP 142/74
--- NOTE | 2019-11-30 12:26 | NUR ---
NORCO GIVEN FOR C/O "SINUS HEADACHE". ALSO REQUESTED A TEMP CHECK AT THIS TIME. TEMP WNL. SEE VITALS SCREEN. WILL MONITOR. CALL LIGHT IN REACH.
--- NOTE | 2019-11-30 13:02 | NUR ---
PER PT, NORCO WAS EFECTIVE FOR COMPLAINTS OF HEADACHE AND BACK PAIN. CALL LIGHT IN REACH. WILL MONITOR. NANCY RN AT BEDSIDE TO PLACE PICC LINE. NO VOICED COMPLAINTS AT THIS TIME.
--- NOTE | 2019-11-30 13:23 | NUR ---
PHYSICAL THERAPY Eval orders received 11/29 from Coretta LEAVITT per note PT/OT once cleared by podiatry. Spoke with over the phone 11/29 at 13:25 regarding if ok for therapy at this time. Per MD prefers to wait until Tuesday after procedure as pt scheduled for further surgery. Will follow on [place] 12/02 for clearance for activity/PT eval. Michelle Lopez PT
--- NOTE | 2019-11-30 15:26 | NUR ---
OFF FLOOR FOR ULTRASOUND.
--- NOTE | 2019-11-30 15:50 | NUR ---
BACK FROM ULTRASOUND
[2019-11-30 16:00] VITALS: BP 155/73
--- NOTE | 2019-11-30 16:02 | NUR ---
RAPID COVID TEST NEGATIVE.
--- NOTE | 2019-11-30 19:48 | NUR ---
PATIENT MEDICATED WITH NORCO PER PRN ORDER FOR C/O SHOULDER/ BACK PAIN. RATED PAIN A 4-5/10 WITH 10 BEING THE WORST. SEE EMAR. REINFORCED USE OF CALL LIGHT.
[2019-11-30 20:00] VITALS: BP 133/65
--- NOTE | 2019-11-30 20:45 | NUR ---
PATIENT RESTING QUIETLY. MEDICATION EFFECTIVE.
--- NOTE | 2019-11-30 23:40 | NUR ---
24 HR chart check completed.
[2019-12-01] VITALS: BP 149/79
--- NOTE | 2019-12-01 00:13 | NUR ---
PATIENT MEDICATED WITH NORCO PER PRN ORDER FOR C/O BACK PAIN. SEE EMAR. REINFORCED USE OF CALL LIGHT
--- NOTE | 2019-12-01 01:00 | NUR ---
PATIETN RESTING QUIETLY. NO FURTHER C/O VOICED.
--- NOTE | 2019-12-01 07:40 | NUR ---
DULCOLAX 5MG PO GIVEN PER PATIENT REQUEST FOR CONSTIPATION.
[2019-12-01 08:00] VITALS: BP 164/81
--- NOTE | 2019-12-01 11:28 | NUR ---
SCD APPLIED TO RIGHT LEG ORDERED.
[2019-12-01 12:00] VITALS: BP 158/74
--- NOTE | 2019-12-01 12:24 | NUR ---
NORCO 5/325 GIVEN PER PATIENT REQUEST LOWER BACK AND NECK PAIN RATING 6/10.
--- NOTE | 2019-12-01 13:30 | NUR ---
PATIENT SLEEPING. NO SIGNS OF DISTRESS. NORCO EFFECTIVE.
--- NOTE | 2019-12-01 14:10 | NUR ---
DULCOLAX EFFECTIVE PER PATIENT.
--- NOTE | 2019-12-01 15:53 | NUR ---
ASSUMED CARE OF PT AT THIS TIME. RESTING IN BED. RESPS EASY AND NON LABORED. NO S/S OF DISTRESS NOTED.VSS.WHITE BOARD UPDATED. CALL LIGHT WITHIN REACH. WOUND VAC @ 200LOW CONT. ON ASSESSMENT PTS RIGHT TOES ARE COOL TO THE TOUCH,BLUE/PURPLE IN COLOR,APPEAR SLIGHTLY MOTTLED AND PT IS UNABLE TO WIGGLE TOES. PT STATES HE HAS NEUROPATHY AND HASNT BEEN ABLE TO WIGGLE HIS TOES OR FEEL MUCH FOR QUITE SOME TIME. NOTIFIED DR HATFIELD OF FINDINGS WHO THEN CAME TO THE FLOOR. STATES TO CALL PODIATRY.
[2019-12-01 16:00] VITALS: BP 153/86
--- NOTE | 2019-12-01 16:16 | NUR ---
SPOKE WITH PODIATRY WHO STATES TO LOOSEN DRESSING ON WOUND VAC. REMOVED THREE MUKESH WRAPS FROM PTS KNEE TO HIS TOES. UPON ASSESSMENT PTS TOES GAINED A MORE PINK/RED COLOR. WILL CONTINUE TO MONITOR
--- NOTE | 2019-12-01 17:15 | NUR ---
IN TO REASSESS PTS TOES AFTER REMOVING MUKESH WRAPS. GOOD CAP REFILL, SLIGHTLY WARMER TO THE TOUCH AND TOES ARE NOW PINK. NO DISCOLORATION NOTED AT THIS TIME. PT ALSO STATES THAT IT LOOKS BETTER TO HIM WELL. WILL CONTINUE TO MONITOR.
--- NOTE | 2019-12-01 17:42 | NUR ---
Shift chart check completed.
--- NOTE | 2019-12-01 19:58 | NUR ---
PATIENT MEDICATED WITH NORCO PER PRN ORDER FOR C/O BACK PAIN. RATED PAIN A 7-8/10 WITH 10 BEING THE WORST. SEE EMAR REINFORCED USE OF CALL LIGHT
[2019-12-01 20:00] VITALS: BP 150/68; BP 196/88
--- NOTE | 2019-12-01 20:45 | NUR ---
PATIENT RESTING QUIETLY. STATED MEDICATION EFFECTIVE AND PAIN LEVEL IS MORE TOLERABLE. REINFORCED USE OF CALL LIGHT.
[2019-12-02] VITALS (8 sets, daily range): BP systolic 146–198; BP diastolic 74–85
--- NOTE | 2019-12-02 02:47 | NUR ---
24 HR chart check completed.
--- NOTE | 2019-12-02 07:53 | NUR ---
MEDICATED WITH PRN PO NORCO FOR RIGHT HIP AND LOWER BACK PAIN.
--- NOTE | 2019-12-02 08:40 | NUR ---
PRN PO NORCO EFFECTIVE FOR PAIN, PER PATIENT.
--- NOTE | 2019-12-02 15:43 | NUR ---
NORCO 5/325 MG GIVEN FOR C/O PAIN TO BILATERAL LEGS, 02/24.
--- NOTE | 2019-12-02 18:47 | NUR ---
Patient resting quietly with no c/o discomfort. Respirations easy and regular. Vital signs stable. No overt distress. BECCA CASTILLO
--- NOTE | 2019-12-02 20:08 | NUR ---
BP 176/75. AWARE. METOPROLOL GIVEN AT THIS TIME. WILL MONITOR.
--- NOTE | 2019-12-02 21:58 | NUR ---
NORCO GIVEN FOR C/O BACK AND RIGHT SHOULDER PAIN RATED 5/10. STATES HE WAS TRYING TO "STRETCH" HIS BACK DURING THE DAY THE BEST HE COULD AND IT HAS HELPED SOME. CALL LIGHT IN REACH. BP 146/82 FOLLOWING BP MEDS.
--- NOTE | 2019-12-02 22:17 | NUR ---
PER PT, NORCO WAS EFFECTIVE. CALL LIGHT IN REACH. ABX CONTINUES TO INFUSE WITH [facility].
--- NOTE | 2019-12-02 23:17 | NUR ---
AWARE OF MANUAL BP 194/80. SAID HE WOULD PUT ORDERS IN.
--- NOTE | 2019-12-02 23:42 | NUR ---
APRESOLINE GIVEN PER ORDERS. WILL MONITOR BP.
[2019-12-03] VITALS (14 sets, daily range): BP systolic 117–201; BP diastolic 63–96
--- NOTE | 2019-12-03 00:06 | NUR ---
BP 174/96 FOLLOWING APRESOLINE 20 MINS AGO. WILL RECHECK AGAIN SOON. CALL LIGHT IN REACH. PT ASYMPTOMATIC.
--- NOTE | 2019-12-03 00:25 | NUR ---
BP 186/86. AWARE.
--- NOTE | 2019-12-03 01:09 | NUR ---
BP 180/80. PT STATES IT HAD TO BE HIS SCD. STATES THAT HIS BP STARTED TO GO UP SINCE HIS AFTERNOON MERREM DOSE AND SCDs PLACED ON. REFUSING ORDERED LABETALOL. EDUCATED ON IMPORTANCE OF CONTROLLED BP. ASKED IF I COULD RECHECK HIS BP IN 30MINS. IF IT IS STILL UP, HE WOULD BE OIPEN TO LABETALOL AT THAT TIME. MADE AWARE.
--- NOTE | 2019-12-03 01:38 | NUR ---
24HR CHART CHECK COMPLETED
--- NOTE | 2019-12-03 02:06 | NUR ---
BP 188/86 MANUAL. PT OK TO HAVE LABETALOL NOW. SEE MAR. WILL MONITOR.
--- NOTE | 2019-12-03 02:50 | NUR ---
BP 174/86 FOLLOWING LABETALOL. AWARE.
--- NOTE | 2019-12-03 03:59 | NUR ---
BP 166/86 MANUAL FOLLOWING APRESOLINE.
--- NOTE | 2019-12-03 06:51 | NUR ---
INFORMED OF BP 182/76.
[2019-12-03 06:52] LABS: BASO % 0.5 % (0.0-1.0); EOS # 0.2 10*3/uL (0.0-0.4); EOS % 2.4 % (1.0-4.0); HEMATOCRIT 36.7 % (42.0-52.0); LYMPH # 1.4 10*3/uL (1.3-4.4); LYMPH % 21.1 % (27.0-41.0); MEAN CELL VOLUME 77.9 fl (80.0-94.0); MEAN CORPUSCULAR HGB 25.1 pg (27.0-31.0); MEAN CORPUSCULAR HGB CONC 32.2 g/dl (33.0-37.0); MEAN PLATELET VOLUME 8.8 fl (9.6-12.3); MONO # 0.5 10*3/uL (0.1-1.0); MONO % 7.8 % (3.0-9.0); NEUT # 4.4 10*3/uL (2.3-7.9); NEUT % 67.3 % (47.0-73.0); PLATELET COUNT AUTOMATED 213 10*3/uL (130-400); RED BLOOD COUNT 4.71 10*6/uL (4.50-5.90); RED CELL DISTRI WIDTH 14.9 % (0-14.5); WHITE BLOOD COUNT 6.6 10*3/uL (4.8-10.8)
[2019-12-03 07:25] LABS: CHLORIDE 105 mmol/L (98-107); POTASSIUM 3.9 mmol/L (3.5-5.1); SODIUM 138 mmol/L (136-145)
[2019-12-03 07:34] LABS: BUN 10 mg/dl (7-24); CREATININE 0.67 mg/dL (0.70-1.30)
--- NOTE | 2019-12-03 08:27 | NUR ---
[facility] Faxed updates to [facility] on this date. Once patient is medically stable he can be discharged to facility.
--- NOTE | 2019-12-03 09:00 | NUR ---
case management visits with patient, he will be discharged to [facility] when medically stable, patient is having surgery today, case management and social science analyst will follow
--- NOTE | 2019-12-03 11:57 | NUR ---
DR KAYE NOTIFIED OF PT'S ELEVATED BLOOD PRESSURE. NO NEW ORDERS.
--- NOTE | 2019-12-03 13:15 | NUR ---
PHYSICAL THERAPY Pt for surgery of RLE/foot wound today by podiatry will follow as appropriate after procedure. Michelle Lopez PT
--- NOTE | 2019-12-03 13:22 | NUR ---
OT NOTE Occupational therapy orders received and chart reviewed. Patient scheduled to have surgery of the RLE this date. Will follow up with patient post-op when appropriate for an OT evaluation. Thank you. Louisa Kevin OTR/L
--- NOTE | 2019-12-03 13:34 | NUR ---
SPOKE WITH DR. BARGER RESIDENT. MA'ED TO USE PICC LINE. FLUSHED AND BLOOD RETURN NOTED. ORDERS TO FLUSH AND MAINTAIN PER P/P. ALISA CALL RN
--- NOTE | 2019-12-03 21:13 | NUR ---
MEDICATED WITH PRN [facility]CO FOR C/O PAIN IN RIGHT FOOT RATED 7/10 ON A 0/10 PAIN SCALE. WILL MONITOR
--- NOTE | 2019-12-03 22:13 | NUR ---
PATIENT SLEEPING. MEDICATION SEEMS EFFECTIVE
[2019-12-04] VITALS: BP 136/77
--- NOTE | 2019-12-04 01:17 | NUR ---
24 HR chart check completed.
[2019-12-04 06:37] LABS: BASO % 0.6 % (0.0-1.0); EOS # 0.2 10*3/uL (0.0-0.4); EOS % 2.5 % (1.0-4.0); HEMATOCRIT 34.9 % (42.0-52.0); LYMPH # 1.4 10*3/uL (1.3-4.4); LYMPH % 21.4 % (27.0-41.0); MEAN CORPUSCULAR HGB 25.1 pg (27.0-31.0); MEAN CORPUSCULAR HGB CONC 31.8 g/dl (33.0-37.0); MEAN PLATELET VOLUME 8.8 fl (9.6-12.3); MONO # 0.5 10*3/uL (0.1-1.0); MONO % 7.3 % (3.0-9.0); NEUT # 4.2 10*3/uL (2.3-7.9); NEUT % 67.1 % (47.0-73.0); PLATELET COUNT AUTOMATED 202 10*3/uL (130-400); RED BLOOD COUNT 4.42 10*6/uL (4.50-5.90); RED CELL DISTRI WIDTH 14.9 % (0-14.5); WHITE BLOOD COUNT 6.3 10*3/uL (4.8-10.8)
[2019-12-04 06:51] LABS: BUN 11 mg/dl (7-24); CHLORIDE 106 mmol/L (98-107); POTASSIUM 4.1 mmol/L (3.5-5.1); SODIUM 138 mmol/L (136-145)
[2019-12-04 06:54] LABS: CREATININE 0.73 mg/dL (0.70-1.30)
[2019-12-04 08:00] VITALS: BP 162/82; BP 170/76
--- NOTE | 2019-12-04 09:28 | NUR ---
[facility] faxed clinical updates to [facility] on this date. Pending PT/OT evals and medical stabalization.
--- NOTE | 2019-12-04 11:15 | NUR ---
Occupational Therapy evaluation completed on four with full evaluation to follow. Recommend occupational therapy per plan of care and SNF upon discharge. Thank you for this referral. Louisa Kevin OTR/L
--- NOTE | 2019-12-04 11:30 | NUR ---
Physical Therapy evaluation completed on fourth floor with full evaluation to follow. Recommend physical therapy per plan of care and SNF upon discharge. Thank you for this referral. Michelle Lopez PT
[2019-12-04 12:00] VITALS: BP 142/67
--- NOTE | 2019-12-04 12:46 | NUR ---
PT REQUESTED AND RECIEVED PRN [facility]CO FOR BACK PAIN RATED AT A 8. WILL MONITOR FOR EFFECTIVENESS.
--- NOTE | 2019-12-04 13:46 | NUR ---
PT STATES HIS BACK PAIN FEELS BETTER AT THIS TIME. PRN PAIN MED CONSIDERED EFFECTIVE.
[2019-12-04 16:00] VITALS: BP 144/67
--- NOTE | 2019-12-04 19:00 | NUR ---
ASSUMED CARE FOR THIS PT AT THIS TIME. PT RESTING QUIETLY IN BED W/EYES CLOSED. NO S/S OF DISTRESS NOTED. WOUND ON AND FUNCTIONING ORDERED 200MMHG LOW CONTINUOUS SUCTION. CALL LIGHT IN REACH.
[2019-12-04 20:00] VITALS: BP 154/68
--- NOTE | 2019-12-04 21:12 | NUR ---
PATIENT MEDICATED WITH [facility]CO FOR COMPLAINTS OF LEFT HIP PAIN. RATES 01/24. WILL CHECK EFFECTIVENESS.
[2019-12-05] VITALS: BP 154/79
--- NOTE | 2019-12-05 04:49 | NUR ---
PICC LINE WAS NOT ADVANCED 5CM PER CHEST XRAY AND DOES NOT FLUSH.
--- NOTE | 2019-12-05 04:49 | NUR ---
24 HR chart check completed.
[2019-12-05 08:00] VITALS: BP 160/78; BP 177/92
--- NOTE | 2019-12-05 08:24 | NUR ---
NOTIFIED DR COPE THAT PT PICC LINE IS SLUGGISH BUT WORKS. NO BLOOD RETURN. HEPARIN FLUSHED PER SEP.
--- NOTE | 2019-12-05 09:00 | NUR ---
patient will be discharged to [facility] today, outreach and education social worker will make transportation arrangements, case management will follow
[2019-12-05 10:08] LABS: ACID FAST SPEC PROCESSING Tissue Grinding (.)
--- NOTE | 2019-12-05 10:25 | NUR ---
RAPID COVID 19 TEST COMPLETED PER PHYSICIAN ORDER. AWAITING RESULTS.
--- NOTE | 2019-12-05 10:43 | NUR ---
NOTIFIED DR COPE OF NEGATIVE RAPID COVID RESULTS
[2019-12-05] MEDS ORDERED: HYDROCODONE-AC1 EAC1 PO (10:52)
[2019-12-05] MEDS ORDERED: MERREM IV1 GM IV (10:52)
[2019-12-05] MEDS ORDERED: Vitamin D (1,000 UNI PO (10:52)
[2019-12-05] MEDS ORDERED: AMLODIPINE BESYL5 MG PO (10:52)
--- NOTE | 2019-12-05 11:01 | NUR ---
ARELY faxed clinical updates to [facility] on this date. Once medically stable patient can discharge.
--- NOTE | 2019-12-05 11:15 | NUR ---
WOUND CARE PHOTOS COMPLETED PER PROTOCOL. WOUND VAC REMOVED PER DR BRAY. BETADINE WET TO DRY WITH COMPRESSIVE DRESSING APPLIED PER DR BRAY. PT TOLERATED WELL. CALL LIGHT IN REACH
--- NOTE | 2019-12-05 11:46 | NUR ---
Patient is discharged at this time to [facility] via [phone]. Dc information faxed, [place], nursing/club steward notified. Spring was attemped to be notified by phone but the phone line was busy X 3.
--- NOTE | 2019-12-05 11:47 | NUR ---
DRESSING TO REMAIN INTACT UNTIL CLINIC APPT ON TUESDAY. [facility] TO SEND PT SUPPLIES AND THEIR WOUND VAC FOR APPLICATION PER DR BRAY.
--- NOTE | 2019-12-05 11:50 | NUR ---
NURSE TO NURSE REPORT CALLED TO [facility],TO [facility]Y.
[2019-12-05 12:06] LABS: ACID FAST SPEC PROCESSING Tissue Grinding (.)
--- NOTE | 2019-12-05 12:32 | NUR ---
Discharge instructions reviewed with patient/family. Patient receptive and verbalizes understanding. Follow-up care arranged. Written instructions given to patient/family. BECCA CASTILLO
== END 2019-12-05 12:32 | disposition other institution (70) | DRG 478 ==
LOC: ED 14:11 → 4E 16:11 → EDHOLD 16:11 → 4E 16:18
PROVIDERS: Internal Medicine; Nurse Practitioner Family; Podiatrist; Podiatrist Foot & Ankle Surgery; Student in an Organized Health Care Education/Training Program; ADMIT Family Medicine
PROC: 0QBJ0ZZ Excision of Right Fibula, Open Approach (ICD-10-PCS; principal; 2019-11-29)
PROC: 0QBG0ZZ Excision of Right Tibia, Open Approach (ICD-10-PCS; principal; 2019-11-29)
PROC: 0QBG0ZX Excision of Right Tibia, Open Approach, Diagnostic (ICD-10-PCS; 2019-12-03)
PROC: 0QBJ0ZZ Excision of Right Fibula, Open Approach (ICD-10-PCS; 2019-12-03)
PROC: 02HV33Z Insertion of Infusion Device into Superior Vena Cava, Percutaneous Approach (ICD-10-PCS; 2019-12-03)
PROC: 0QBJ0ZX Excision of Right Fibula, Open Approach, Diagnostic (ICD-10-PCS; 2019-12-03)
PROC: 0QBG0ZZ Excision of Right Tibia, Open Approach (ICD-10-PCS; 2019-12-03)
DX: M86.171 Other acute osteomyelitis, right ankle and foot (principal); E44.0 Moderate protein-calorie malnutrition; L02.415 Cutaneous abscess of right lower limb; I50.32 Chronic diastolic (congestive) heart failure; L03.115 Cellulitis of right lower limb; D50.9 Iron deficiency anemia, unspecified; N40.0 Benign prostatic hyperplasia without lower urinary tract symptoms; I11.0 Hypertensive heart disease with heart failure; G62.9 Polyneuropathy, unspecified; E66.9 Obesity, unspecified; B96.5 Pseudomonas (aeruginosa) (mallei) (pseudomallei) as the cause of diseases classified elsewhere; E83.41 Hypermagnesemia; Z68.33 Body mass index [BMI] 33.0-33.9, adult; Z88.1 Allergy status to other antibiotic agents; Z79.899 Other long term (current) drug therapy; Z79.82 Long term (current) use of aspirin; Z80.42 Family history of malignant neoplasm of prostate; Z82.49 Family history of ischemic heart disease and other diseases of the circulatory system